=== PATIENT | female | born 1965 | race Hispanic/Latino ===

== ENCOUNTER → 2018-06-14 | Outpatient (CLI) | payer OTHER ==
--- NOTE | 2018-06-28 08:44 | Diagnostic Imaging Report ---
#[id number] - MGSCRBIL #BILATERAL DIGITAL SCREENING MAMMOGRAM WITH CAD: 06/14/2018 CLINICAL: Routine screening. Comparison is made to exams dated: 12/28/2016 mammogram - [facility] and 04/16/2011 mammogram - [facility]. Current study contains 4 films. The tissue of both breasts is heterogeneously dense. This may lower the sensitivity of mammography. Current study was also evaluated with a Computer Aided Detection (CAD) system. There are benign calcifications in both breasts. The branching calcification noted on prior mammogram of 12/28/2016 is not present on the current study. These therefore must have been artefactual. No significant masses, calcifications, or other findings are seen in either breast. There has been no significant interval change. IMPRESSION: BENIGN There is no mammographic evidence of malignancy. A 1 year screening mammogram is recommended. The patient will be notified by letter of the results. Isacc Rodríguez Jr., D.O. cw/:06/27/2018 14:50:04 Air Support Control Officer: Jes VILLARREAL(R)(M), [facility] letter sent: Compared to Prior B9 Mammogram BI-RADS: 2 Benign
== END ==
LOC: MAMMO 10:56
PROVIDERS: ATTEND Internal Medicine
DX: Z12.31 Encounter for screening mammogram for malignant neoplasm of breast (principal)
CPT/HCPCS: 77067

== ENCOUNTER → 2018-11-13 | Outpatient (CLI) | payer OTHER ==
--- NOTE | 2018-11-13 15:58 | Diagnostic Imaging Report ---
EXAMINATION: CHEST 2 VIEWS INDICATION: Cough, bronchitis. COMPARISON: None FINDINGS: TUBES and LINES: None. LUNGS: Lungs are well inflated. No evidence of pneumonia or pulmonary edema. A 7 mm nodular opacity projects over the right lower lung. PLEURA: No pleural effusion or pneumothorax. HEART AND MEDIASTINUM: The cardiomediastinal silhouette is unremarkable. There are atherosclerotic calcifications within the aorta. BONES AND SOFT TISSUES: No acute osseous abnormality. UPPER ABDOMEN: No free air under the diaphragm. IMPRESSION: No acute radiographic abnormality. A 7 mm nodular opacity projects over the right lower lung. While this could represent a calcified granuloma, a noncalcified solid nodule is possible. Suggest chest CT for further evaluation. Signed by: Dr. Vanessa Coreas MD on 11/13/2018 3:54 PM
== END ==
LOC: RAD 15:06
PROVIDERS: ATTEND Internal Medicine
DX: R05 Cough (principal); J40 Bronchitis, not specified as acute or chronic
CPT/HCPCS: 71046

== ENCOUNTER 2020-04-28 17:03 | Emergency (ER) | payer OTHER ==
[~2020-04-28] VITALS: Ht 154.9 cm; Wt 68.0 kg
--- NOTE | 2020-04-28 17:25 | Emergency Department Note ---
History of Present Illnes History of Present Illness Chief Complaint: General Medicine Complaints History of Present Illness This is a 54 year old female brought by family member for 2 week h/o of dizziness, blurriness of the vision and diffuse myalgias. patient without cough CP or SOB. Nonspecific in her symptoms. MRI of the brain earlier in the year for occipital pain . History limited by: language barrier Onset (how long ago): week(s) (ALMA ROSA INMAN DO) Past Medical/Family History Physician Review I have reviewed the patient's past medical and family history. Any updates have been documented here. (ALMA ROSA INMAN DO) Review of Systems Review of Systems Constitutional: Reports weakness EENTM: Reports no symptoms Cardiovascular: Reports no symptoms Respiratory: Reports no symptoms Gastrointestinal: Reports no symptoms Genitourinary: Reports no symptoms Musculoskeletal: Reports muscle pain, Reports muscle stiffness, Reports neck pain Integumentary: Reports no symptoms Neurological: Reports no symptoms Psychological: Reports no symptoms Endocrine: Reports no symptoms Hematological/Lymphatic: Reports no symptoms (ALMA ROSA INMAN DO) Physical Exam Related Data Allergies: Coded Allergies: No Known Allergies (Verified , 03/19/10) Physical Exam CONSTITUTIONAL Constitutional: Present ill appearing; Absent distressed HENT HENT: Present normocephalic, Present atraumatic, Present oropharynx clear/moist, Present nose normal HENT L/R: Present left ext ear normal, Present right ext ear normal EYES Eyes: Reports PERRL, Reports conjunctivae normal NECK Neck: Present ROM normal PULMONARY Pulmonary: Present effort normal, Present breath sounds normal CARDIOVASCULAR Cardiovascular: Present regular rhythm, Present heart sounds normal, Present capillary refill normal, Present normal rate GASTROINTESTINAL Abdominal: Present soft, Present nontender, Present bowel sounds normal GENITOURINARY Genitourinary: Present exam deferred SKIN Skin: Present warm, Present dry MUSCULOSKELETAL Musculoskeletal: Present ROM normal NEUROLOGICAL Neurological: Present alert, Present oriented x 3, Present no gross motor or sensory deficits PSYCHOLOGICAL Psychological: Present mood/affect normal, Present judgement normal (ALMA ROSA INMAN DO) Results Laboratory Laboratory Laboratory Tests Test 04/28/20 18:45 04/28/20 18:19 Urine Color Yellow (YELLOW) Urine Clarity Sl cloudy (CLEAR) Urine pH 6 (5 - 7) Urine Specific [place] 1.020 (1.010-1.025) Urine Protein Negative (NEGATIVE) Urine Glucose (UA) Negative (NEGATIVE) Urine Ketones Negative (NEGATIVE) Urine Blood Trace (NEGATIVE) Urine Nitrite Negative (NEGATIVE) Urine Bilirubin Negative (NEGATIVE) Urine Urobilinogen 0.2 mg/dL (0.2 - 1) Urine Leukocyte Esterase Negative (NEGATIVE) Urine RBC 0-5 /HPF (0-5) Urine WBC None /HPF (0-5) Urine Epithelial Cells Few /LPF (NONE) Urine Bacteria Rare /HPF (NONE) White Blood Count 7.46 x10e3/uL (4.8-10.8) Red Blood Count 4.71 x10e6/uL (3.6-5.1) Hemoglobin 13.7 g/dL (12.0-16.0) Hematocrit 40.0 % (34.2-44.1) Mean Corpuscular Volume 84.9 fL (81-99) Mean Corpuscular Hemoglobin 29.1 pg (28-32) Mean Corpuscular Hemoglobin Concent 34.3 g/dL (31-35) Red Cell Distribution Width 12.3 % (11.7-14.4) Platelet Count 244 x10e3/uL (140-360) Neutrophils (%) (Auto) 48.9 % (38.7-80.0) Lymphocytes (%) (Auto) 38.7 % (18.0-39.1) Monocytes (%) (Auto) 6.8 % (4.4-11.3) Eosinophils (%) (Auto) 4.3 % (0.0-6.0) Basophils (%) (Auto) 0.5 % (0.0-1.0) Neutrophils # (Auto) 3.6 (2.1-6.9) Lymphocytes # (Auto) 2.9 (1.0-3.2) Monocytes # (Auto) 0.5 (0.2-0.8) Eosinophils # (Auto) 0.3 (0.0-0.4) Basophils # (Auto) 0.0 (0.0-0.1) Absolute Immature Granulocyte (auto 0.06 x10e3/uL (0-0.1) Sodium Level 142 mmol/L (136-145) Potassium Level 3.2 mmol/L (3.5-5.1) Chloride Level 103 mmol/L (98-107) Carbon Dioxide Level 28 mmol/L (22-29) Anion Gap 14.2 mmol/L (8-16) Blood Urea Nitrogen 10 mg/dL (7-26) Creatinine 0.79 mg/dL (0.57-1.11) Estimat Glomerular Filtration Rate > 60 ML/MIN (60-) BUN/Creatinine Ratio 13 (6-25) Glucose Level 92 mg/dL (74-118) Calcium Level 9.0 mg/dL (8.4-10.2) Total Bilirubin 0.5 mg/dL (0.2-1.2) Aspartate Amino Transf (AST/SGOT) 26 IU/L (5-34) Alanine Aminotransferase (ALT/SGPT) 43 IU/L (0-55) Alkaline Phosphatase 76 IU/L (40-150) Creatine Kinase 150 IU/L (29-168) Creatine Kinase MB 1.30 ng/mL (0-5.0) Troponin I 0.008 ng/mL (0-0.300) B-Type Natriuretic Peptide < 10.0 pg/mL (0-100) Total Protein 7.7 g/dL (6.5-8.1) Albumin 4.8 g/dL (3.5-5.0) Globulin 2.9 g/dL (2.3-3.5) Albumin/Globulin Ratio 1.7 (0.8-2.0) Lab results reviewed: Yes (WESTLEY LIVINGSTON MD) Imaging Imaging results reviewed: Yes Impressions Procedure: [id number] DX/CHEST SINGLE (PORTABLE) Exam Date: 04/28/20 Exam Time: 1803 REPORT STATUS: Signed Examination: Single AP view of the chest. COMPARISON: Chest 2 views 11/13/2018 INDICATION: Disease spells, pain in posterior head for 2 weeks IMPRESSION: 1. Lines and Tubes: None 2. Lungs are well-inflated. Stable 7 mm nodular density in the right mid to lower lung, which may represent a calcified granuloma.. The lungs are otherwise clear. Recommend follow-up chest PA and lateral in 6-7 months to complete 2 year follow-up. 3. Cardiomediastinal silhouette is normal. Pulmonary vasculature is normal. 4. No acute bony abnormalities. Signed by: Dr. Bob Munroe M.D. on 04/28/2020 6:44 PM Dictated By: BOB MUNROE MD [id number] Transcribed By: DANNIELLE on 04/28/201843 COPY TO: ALMA ROSA INMAN DO~ Procedure: [id number] CT/CT BRAIN WO Exam Date: 04/28/20 Exam Time: 1802 REPORT STATUS: Signed ADDENDUM #1 Impression should include nonspecific enlarged empty sella. Signed by: Dr. Jean-Paul Frausto M.D. on 04/28/2020 6:[address] BRAIN WO HISTORY: Dizziness COMPARISON: None. TECHNIQUE: Noncontrast axial scans were obtained from skull base to the vertex. Coronal and sagittal reconstructions obtained from the axial data. One or more of the following dose reduction techniques were used: Automated exposure control, adjustment of the mA and/or kV according to patient size, and/or utilization of iterative reconstruction technique. DISCUSSION: Scalp/Skull: Unremarkable. Brain sulci: Appropriate for patient's age. Ventricles: Normal in size and configuration. No hydrocephalus. Extra-axial spaces: No masses or fluid collections. Carotid siphon calcifications are present Parenchyma: No abnormal densities. No mass, hemorrhage, or large vascular territory acute infarct. Dural sinuses: No abnormal densities. Sellar/Suprasellar region: Nonspecific enlarged empty sella. Skull base: Intact. Incidental findings: Partially imaged mild chronic deformity of the right orbital floor is likely from remote fracture. IMPRESSION: No acute intracranial abnormalities. Signed by: Dr. Jean-Paul Frausto M.D. on 04/28/2020 6:25 PM Dictated By: JEAN-PAUL FRAUSTO MD 30 Transcribed By: DANNIELLE on 04/28/201824 COPY TO: ALMA ROSA INMAN DO~ (WESTLEY LIVINGSTON MD) Procedures 12 Lead ECG Interpretation ECG Interpretation : ECG: ECG 1 Cable Supervisor: Interpreted by ED physician Date: Apr 28, 2020 Time: 18:24 Prior ECG tracings: reviewed Rhythm: sinus rhythm Rate: normal BPM: 71 QRS axis: normal ST segments normal: Yes T waves normal: Yes Clinical Impression: non-specific ECG (ALMA ROSA INMAN DO) Assessment & Plan Medical Decision Making MDM PT DISCHARGED TO FOLLOW UP WITH HER NEUROLOGIST (WESTLEY LIVINGSTON MD) Assessment & Plan Final Impression: (1) Headache (2) Blurred vision (3) Body aches (WESTLEY LIVINGSTON MD) Depart Disposition: HOME, SELF-CARE ALMA ROSA INMAN DO Apr 28, 2020 17:25 WESTLEY LIVINGSTON MD Apr 28, 2020 19:46
[2020-04-28] MEDS ORDERED: SODIUM CHLORIDE 0.9% 1000ML 1,000 ML IV STA (17:26)
--- OUTSIDE RECORDS SUMMARY | 2020-04-28 18:01 | XMS REPORT | Continuity of Care Document ---
Author Author [facility] t Organization [facility] Address [address] [place] [address] Phone Unavailable Care Team Providers Care Brand Marketing Coordinator Name Role Phone Status, Fax Attphys Unavailable Vero Boothe Attphys Unavailable Deborah, Nuria Attphys Coleen Rosa Attphys Unavailable Aria Albarran Attphys Unavailable Lucio, Aishwarya Attphys Unavailable Carmella Kaba Attphys ZEESHAN HOLBROOK Attphys Unavailable Deborah, Nuria Unavailable Problems Condition Name Condition Details Condition Category Status Onset Date Resolution Date Last Treatment Date Treating Clinician Comments Source Headache Condition Active 2019-12-17 00:00:00 6 11:16:03 Deborah, [employer] [facility] HYPERTENSION Condition Active 2019-12-17 00:00:00 12-18 11:16:03 Deborah, [employer] [facility] Abdominal pain, lower Condition Active 2019-12-17 00:00:0 0 2019-12-19 11:16:03 Deborah, Nuria [facility] Allergies, Adverse Reactions, Alerts This patient has no known allergies or adverse reactions. Social History Social Habit Start Date Stop Date Quantity Comments Source drug use, illicit 2019-12-17 12:24:13 2019-12-17 12:24:13 Never [facility] alcohol use 2019-12-17 12:24:13 2019-12-17 12:24:13 Never [facility] patient considered to be homeless 2019-12-17 12:24:13 2019-12-17 12:2 4:13 No [facility] passive cigarette smoke exposure 2019-12-17 12:24:13 2019-12-17 12:24 :13 No [facility] if the patient is using/has used a vapin g item, Current, Former, Never Used, Not asked 2019-12-17 12:24:13 2019-12-17 12:24:13 No [facility] Smoking Status Start Date Stop Date Source Never smoked tobacco (finding) [facility] Medications Ordered Medication Name Filled Medication Name Start Date Stop Da te Current Medication? Ordering Clinician Indication Dosage Frequency Signature (SIG) Comments Components Source (AMLODIPINE BESYLATE) 10 MG TABS 2019-09-17 00:00:00 Yes Nuria Cabrera TAKE 1 TABLET BY MOUTH ONCE DAILY #30, 30 days supply, Prescribed by ZEESHAN HOLBROOK, Filled 11/16/2019 [facility] Vital Signs Vital Name Observation Time Observation Value Comments Source blood pressure, diastolic 2019-12-17 12:24:13 84 mm[Hg] [facility] blood pressure, systolic 2019-12-17 12:24:13 131 mm[Hg] [facility] weight E&M 2019-12-17 12:24:13 148 [lb_av] [facility] weight in kilograms E&M 2019-12-17 12:24:13 67.27 kg [facility] height in centimeters E&M 2019-12-17 12:24:13 154.94 cm [facility] Procedures This patient has no known procedures. Encounters Start Date/Time End Date/Time Encounter Type Admission Type [facility] Care Department Encounter ID Source 2019-12-19 00:00:00 2019-12-19 00:00:00 Office Visit Status, Fax [facility] Encounter/[id number] [facility] 2019-12-19 00:00:00 2019-12-19 00:00:00 Office Visit Status, Fax [facility] Encounter/[id number] [facility] 2019-12-19 00:00:00 2019-12-19 00:00:00 Office Visit Status, Fax [facility] Encounter/[id number] [facility] 2019-12-17 00:00:00 2019-12-17 00:00:00 Office Visit Vero Boothe [facility] Encounter/[id number] [facility] 2019-12-17 00:00:00 2019-12-17 00:00:00 Office Visit Nuria Jiang Brenda Lopez, Marleni McIntyre, Shakira [facility] Encounter/[id number] [facility] 2019-12-17 00:00:00 2019-12-17 00:00:00 Office Visit Aishwarya Chavez [facility] Encounter/[id number] [facility] 2019-12-17 00:00:00 2019-12-17 00:00:00 Office Visit Aishwarya Salazar Hugo A [facility] Encounter/[id number] [facility] Results Test Description Test Time Test Comments Results Result Comments Source CHEST 2 VIEWS 2018-11-13 15:50:00 [place] [address] Patient Name: RHIANNON ADLER MR #: [id number] : 1965 Age/Sex: 53/F Req #: [id number] Adm Physician: Ordered by: ZEESHAN HOLBROOK MD Report #: [id number] Location: [facility] Room/Bed: Procedure: [id number] DX/CHEST 2 VIEWS Exam Date: Exam Time: REPORT STATUS: Signed EXAMINATION: CHEST 2 VIEWS INDICATION: Cough, bronchitis. COMPARISON: None FINDINGS: TUBES and LINES: None. LUNGS: Lungs are well inflated. No evidence of pneumonia or pulmonary edema. A 7 mm nodular opacity projects over the right lower lung. PLEURA: No pleural effusion or pneumothorax. HEART AND MEDIASTINUM: The cardiomediastinal silhouette is unremarkable. There are atherosclerotic calcifications within the aorta. BONES AND SOFT TISSUES: No acute osseous abnormality. UPPER ABDOMEN: No free air under the diaphragm. IMPRESSION: No acute radiographic abnormality. A 7 mm nodular opacity pr ojects over the right lower lung. While this could represent a calcified granuloma, a noncalcified solid nodule is possible. Suggest chest CT for further evaluation. Signed by: Dr. Annette Huffman MD on 11/13/2018 3:54 PM Dictated By: ANNETTE HUFFMAN MD [id number] Transcribed By: DANNIELLE on 11/13/18 5307 COPY TO: ZEESHAN HOLBROOK MD MAMMOGRAPHY DIGITAL SCR BILAT 2018-06-14 11:48:00 [place] [address] Patient Name: RHIANNON ADLER MR #: [id number] : 1965 Age/Sex: 52/F Req #: [id number] [facility] Physician: Ordered by: ZEESHAN HOLBROOK MD Report #: [id number] Location: MAMMO Room/Bed: Procedure: [id number] MG/MAMMOGRAPHY DIGITAL SCR BILAT Exam Date: 06/14/18 Exam Time: 1100 REPORT STATUS: Signed #[id number] - MGSCRBIL #BILATERAL DIGITAL SCREENING MAMMOGRAM WITH CAD: 06/14/2018 CLINICAL: Routine screening. Comparison is made to exams dated: 12/28/2016 mammogram - [facility] and 04/16/2011 mammo gram - [facility]. Current study contains 4 films. The tissue of both breasts is heterogeneously dense. This may lower the sensitivity of mammography. Current study was also evaluated with a Computer Aided Detection (CAD) system. There are benign calcifications in both breasts. The branching calcification noted on prior mammogram of 12/28/2016 is not present on the current study. These therefore must have been artefactual. No significant masses, calcifications, or other findings are seen in either breast. There has been no significant interval change. IMPRESSION: BENIGN There is no mammographic evidence of malignancy. A 1 year screening mammogram is recommended. The patient will be notified by letter of the results. Isacc Rodríguez Jr., D.O. cw/:06/27/2018 14:50:04 Diamond Grader: Jes VILLARREAL([place])(M), [facility] letter sent: Compared to Prior B9 Mammogram BI-RADS: 2 Benign Dictated By: ISACC RODRÍGUEZ DO [id number] Transcribed By: MAYDA on 06/27/18 5730 COPY TO: ZEESHAN HOLBROOK MD
--- NOTE | 2020-04-28 18:28 | Diagnostic Imaging Report ---
ADDENDUM #1 Impression should include nonspecific enlarged empty sella. Signed by: Dr. Jean-Paul Frausto M.D. on 04/28/2020 6:[address] BRAIN WO HISTORY: Dizziness COMPARISON: None. TECHNIQUE: Noncontrast axial scans were obtained from skull base to the vertex. Coronal and sagittal reconstructions obtained from the axial data. One or more of the following dose reduction techniques were used: Automated exposure control, adjustment of the mA and/or kV according to patient size, and/or utilization of iterative reconstruction technique. DISCUSSION: Scalp/Skull: Unremarkable. Brain sulci: Appropriate for patient's age. Ventricles: Normal in size and configuration. No hydrocephalus. Extra-axial spaces: No masses or fluid collections. Carotid siphon calcifications are present Parenchyma: No abnormal densities. No mass, hemorrhage, or large vascular territory acute infarct. Dural sinuses: No abnormal densities. Sellar/Suprasellar region: Nonspecific enlarged empty sella. Skull base: Intact. Incidental findings: Partially imaged mild chronic deformity of the right orbital floor is likely from remote fracture. IMPRESSION: No acute intracranial abnormalities. Signed by: Dr. Jean-Paul Frausto M.D. on 04/28/2020 6:25 PM
[2020-04-28 18:30] LABS: BASOPHILS % 0.5 % (0.0-1.0); EOSINOPHILS # (AUTO) 0.3 (0.0-0.4); EOSINOPHILS % 4.3 % (0.0-6.0); HEMOGLOBIN 13.7 g/dL (12.0-16.0); LYMPHOCYTES # (AUTO) 2.9 (1.0-3.2); LYMPHOCYTES % 38.7 % (18.0-39.1); MEAN CORPUSCULAR HEMOGLOBIN 29.1 pg (28-32); MEAN CORPUSCULAR HGB CONC 34.3 g/dL (31-35); MEAN CORPUSCULAR VOLUME 84.9 fL (81-99); MONOCYTES # (AUTO) 0.5 (0.2-0.8); MONOCYTES % 6.8 % (4.4-11.3); NEUTROPHILS # (AUTO) 3.6 (2.1-6.9); NEUTROPHILS % 48.9 % (38.7-80.0); PLATELET COUNT 244 x10e3/uL (140-360); RED BLOOD COUNT 4.71 x10e6/uL (3.6-5.1); RED CELL DISTRIBUTION WIDTH 12.3 % (11.7-14.4)
--- NOTE | 2020-04-28 18:47 | Diagnostic Imaging Report ---
Examination: Single AP view of the chest. COMPARISON: Chest 2 views 11/13/2018 INDICATION: Disease spells, pain in posterior head for 2 weeks IMPRESSION: 1. Lines and Tubes: None 2. Lungs are well-inflated. Stable 7 mm nodular density in the right mid to lower lung, which may represent a calcified granuloma.. The lungs are otherwise clear. Recommend follow-up chest PA and lateral in 6-7 months to complete 2 year follow-up. 3. Cardiomediastinal silhouette is normal. Pulmonary vasculature is normal. 4. No acute bony abnormalities. Signed by: Dr. Alex Munroe M.D. on 04/28/2020 6:44 PM
[2020-04-28 18:48] LABS: ALANINE AMINOTRANSFERASE 43 IU/L (0-55); ALBUMIN 4.8 g/dL (3.5-5.0); ALBUMIN/GLOBULIN RATIO 1.7 (0.8-2.0); ALKALINE PHOSPHATASE 76 IU/L (40-150); ANION GAP 14.2 mmol/L (8-16); BLOOD UREA NITROGEN 10 mg/dL (7-26); BUN/CREATININE RATIO 13 (6-25); CARBON DIOXIDE 28 mmol/L (22-29); CHLORIDE 103 mmol/L (98-107); CREATINE KINASE 150 IU/L (29-168); CREATININE, SERUM 0.79 mg/dL (0.57-1.11); EST GLOMERULAR FILTRATION RATE > 60 ML/MIN (60-); GLUCOSE 92 mg/dL (74-118); POTASSIUM 3.2 mmol/L (3.5-5.1); SODIUM 142 mmol/L (136-145)
[2020-04-28 19:06] LABS: BILIRUBIN,URINE NEGATIVE (NEGATIVE); CLARITY,URINE SL CLOUDY (CLEAR); COLOR,URINE YELLOW (YELLOW); KETONES,URINE NEGATIVE (NEGATIVE); LEUKOCYTE ESTERASE ,URINE NEGATIVE (NEGATIVE); NITRITE,URINE NEGATIVE (NEGATIVE); PROTEIN,URINE DIPSTICK NEGATIVE (NEGATIVE); URINE UROBILINOGEN 0.2 mg/dL (0.2 - 1)
[2020-04-28 19:28] LABS: BACTERIA,URINE RARE /HPF; EPITHELIAL CELLS,URINE FEW /LPF; RBC,URINE 0-5 /HPF (0-5)
[2020-04-28 20:22] VITALS: BP 135/76
== END 2020-04-28 20:24 | disposition home or self-care (01) ==
LOC: ER 17:59
DX: R51 Headache (principal); H53.8 Other visual disturbances; R42 Dizziness and giddiness; M54.2 Cervicalgia; M79.10 Myalgia, unspecified site
CPT/HCPCS: 36415; 70450; 71045; 80053; 81001; 82550; 82553; 83880; 84484; 85025; 93005; 99284

== ENCOUNTER 2020-05-05 22:04 | Emergency (ER) | payer OTHER ==
[~2020-05-05] VITALS: Ht 154.9 cm; Wt 68.0 kg
[2020-05-05] MEDS ORDERED: KETOROLAC TROMETHAMINE 30 MG/ML VIAL IV STA (22:28)
[2020-05-05] MEDS ORDERED: SODIUM CHLORIDE 0.9% 500ML 500 ML IV STA (22:28)
[2020-05-05] MEDS ORDERED: DIPHENHYDRAMINE HCL INJ 50 MG/ML VIAL IV STA (22:28)
[2020-05-05 22:29] LABS: BASOPHILS # (AUTO) 0.1 (0.0-0.1); BASOPHILS % 0.7 % (0.0-1.0); EOSINOPHILS # (AUTO) 0.3 (0.0-0.4); EOSINOPHILS % 3.7 % (0.0-6.0); HEMATOCRIT 41.6 % (34.2-44.1); HEMOGLOBIN 14.2 g/dL (12.0-16.0); LYMPHOCYTES # (AUTO) 3.1 (1.0-3.2); LYMPHOCYTES % 40.9 % (18.0-39.1); MEAN CORPUSCULAR HEMOGLOBIN 28.7 pg (28-32); MEAN CORPUSCULAR HGB CONC 34.1 g/dL (31-35); MONOCYTES # (AUTO) 0.5 (0.2-0.8); MONOCYTES % 6.3 % (4.4-11.3); NEUTROPHILS # (AUTO) 3.6 (2.1-6.9); NEUTROPHILS % 47.7 % (38.7-80.0); PLATELET COUNT 247 x10e3/uL (140-360); RED BLOOD COUNT 4.95 x10e6/uL (3.6-5.1); RED CELL DISTRIBUTION WIDTH 12.2 % (11.7-14.4)
[2020-05-05] MEDS ORDERED: METOCLOPRAMIDE HCL 10 MG/2ML VIAL IV ONE (22:30)
[2020-05-05 22:44] LABS: BILIRUBIN,URINE NEGATIVE (NEGATIVE); CLARITY,URINE SL CLOUDY (CLEAR); COLOR,URINE YELLOW (YELLOW); KETONES,URINE NEGATIVE (NEGATIVE); LEUKOCYTE ESTERASE ,URINE NEGATIVE (NEGATIVE); NITRITE,URINE NEGATIVE (NEGATIVE); PROTEIN,URINE DIPSTICK TRACE (NEGATIVE); URINE UROBILINOGEN 0.2 mg/dL (0.2 - 1)
[2020-05-05] MEDS ORDERED: TETRACAINE HCL 0.5% OPTH SOLN 4 ML BTL OP ONE (22:45)
[2020-05-05 22:48] LABS: ALANINE AMINOTRANSFERASE 44 IU/L (0-55); ALBUMIN 4.9 g/dL (3.5-5.0); ALBUMIN/GLOBULIN RATIO 1.5 (0.8-2.0); ALKALINE PHOSPHATASE 88 IU/L (40-150); ANION GAP 14.1 mmol/L (8-16); BLOOD UREA NITROGEN 11 mg/dL (7-26); BUN/CREATININE RATIO 15 (6-25); CALCIUM 9.3 mg/dL (8.4-10.2); CARBON DIOXIDE 26 mmol/L (22-29); CHLORIDE 105 mmol/L (98-107); CREATININE, SERUM 0.75 mg/dL (0.57-1.11); EST GLOMERULAR FILTRATION RATE > 60 ML/MIN (60-); GLUCOSE 117 mg/dL (74-118); POTASSIUM 3.1 mmol/L (3.5-5.1); SODIUM 142 mmol/L (136-145)
[2020-05-05 22:50] LABS: BACTERIA,URINE FEW /HPF; EPITHELIAL CELLS,URINE MODERATE /LPF; RBC,URINE 0-5 /HPF (0-5); WBC,URINE (MAN) 0-5 /HPF (0-5)
--- NOTE | 2020-05-05 22:59 | Emergency Department Note ---
History of Present Illnes History of Present Illness Chief Complaint: Headache History of Present Illness This is a 54 year old female Chief Complaint Comment 54 Y/O FEMALE PT AAOX3 PRESENTS TO THE ER C/O RUBIO AND BLURRED VISION X7 DAYS; PT REPORTS PRESSURE BEHIND BOH EYES BUT WORSE BEHIND RT EYE; PT'S DAUGHTER STATES SHE HAS SEEN NEUROLOGIST AND HAD X2 MRI'S WITHIN THE PAST [address] LAST TUESDAY AT HIS FACILITY AND TOLD SHE HAS AN INACTIVE LESION BY NEUROLOGIST; DAUGHTER IS WANTING A FULL WORKUP; PT HAS PHOTOPHOBIA. Historian: Patient Arrival Mode: Car Associate Buyer Required: Yes Onset (how long ago): month(s) (6) Location: Bilateral eyes Quality: Sharp Past Medical/Family History Physician Review I have reviewed the patient's past medical and family history. Any updates have been documented here. Past Medical History Recent Fever: No Clinical Suspicion of Infectio: No New/Unexplained Change in Ment: No Past Medical History: Hypertension, Migraines Past Surgical History: None Other Surgery: ANKLE Review of Systems Review of Systems Constitutional: Reports no symptoms EENTM: Reports eye pain, Reports blurred vision Cardiovascular: Reports no symptoms Respiratory: Reports no symptoms Gastrointestinal: Reports no symptoms Genitourinary: Reports no symptoms Musculoskeletal: Reports no symptoms Integumentary: Reports no symptoms Neurological: Reports as per HPI, Reports headache Psychological: Reports no symptoms Endocrine: Reports no symptoms Hematological/Lymphatic: Reports no symptoms Physical Exam Related Data Allergies: Coded Allergies: No Known Allergies (Verified , 03/19/10) Triage Vital Signs Vital Signs Date Time Temp Pulse Resp B/P (MAP) Pulse Ox O2 Delivery O2 Flow Rate FiO2 05/05/20 22:10 98.4 81 18 158/95 100 Room Air Vital signs reviewed: Yes Physical Exam CONSTITUTIONAL Constitutional: Present well-developed, Present well-nourished HENT HENT: Present normocephalic, Present atraumatic, Present oropharynx clear/moist, Present nose normal HENT L/R: Present left ext ear normal, Present right ext ear normal EYES Eyes: Reports PERRL, Reports conjunctivae normal, Reports EOM normal (Pain with EOM movement. Vision 20/10 in L eye and 20/70 R eye with out glasses), Reports other (Fluorescin stainging shows no uptake. IOP 20 in both eyes. ); Denies lids normal, Denies left eye discharge, Denies right eye discharge, Denies scleral icterus NECK Neck: Present ROM normal PULMONARY Pulmonary: Present effort normal, Present breath sounds normal CARDIOVASCULAR Cardiovascular: Present regular rhythm, Present heart sounds normal, Present capillary refill normal, Present normal rate GASTROINTESTINAL Abdominal: Present soft, Present nontender, Present bowel sounds normal GENITOURINARY Genitourinary: Present exam deferred SKIN Skin: Present warm, Present dry MUSCULOSKELETAL Musculoskeletal: Present ROM normal NEUROLOGICAL Neurological: Present alert, Present oriented x 3, Present no gross motor or sensory deficits PSYCHOLOGICAL Psychological: Present mood/affect normal, Present judgement normal Results Laboratory Result Diagram: 05/05/20 2222 Laboratory Laboratory Tests Test 05/05/20 22:22 White Blood Count 7.62 x10e3/uL (4.8-10.8) Red Blood Count 4.95 x10e6/uL (3.6-5.1) Hemoglobin 14.2 g/dL (12.0-16.0) Hematocrit 41.6 % (34.2-44.1) Mean Corpuscular Volume 84.0 fL (81-99) Mean Corpuscular Hemoglobin 28.7 pg (28-32) Mean Corpuscular Hemoglobin Concent 34.1 g/dL (31-35) Red Cell Distribution Width 12.2 % (11.7-14.4) Platelet Count 247 x10e3/uL (140-360) Neutrophils (%) (Auto) 47.7 % (38.7-80.0) Lymphocytes (%) (Auto) 40.9 % (18.0-39.1) Monocytes (%) (Auto) 6.3 % (4.4-11.3) Eosinophils (%) (Auto) 3.7 % (0.0-6.0) Basophils (%) (Auto) 0.7 % (0.0-1.0) Neutrophils # (Auto) 3.6 (2.1-6.9) Lymphocytes # (Auto) 3.1 (1.0-3.2) Monocytes # (Auto) 0.5 (0.2-0.8) Eosinophils # (Auto) 0.3 (0.0-0.4) Basophils # (Auto) 0.1 (0.0-0.1) Absolute Immature Granulocyte (auto 0.05 x10e3/uL (0-0.1) Procedures Procedures Procedure: Ultrasound eyes bilaterally shows no retinal detachment, optic nerve diameter bilaterally is 3mm Assessment & Plan Medical Decision Making MDM 54-year-old female with a past medical history hypertension and migraines presents to emergency department for reevaluation of headache, eye pain, blurry vision. This has been ongoing for many months and is waxing and waning in intensity. She has been seen multiple times and has had an extensive workup including MRI with and without contrast, CT scan of the head, extensive labor atory workup, EEG, carotid Dopplers which revealed no emergent process or obvious cause of her symptoms. Initial differential includes migraine versus meningitis versus versus giant cell arteritis versus optic neuritis among others. After extensive examination of her prior medical records and my exa mination it is unlikely that there is an emergent process at this time. Symptoms could be secondary to a complex migraine as well. CT orbits shows no significant abnormalities, eye exam is unremarkable, intraocular pressures are normal, ultrasound of the eyes are also normal. No focal neurologic deficits, cranial nerves II through XII are intact,no fever, meningeal signs. Discussed results with patient and daughter and they will follow-up with their ophthalmology appointment as well as neurology. She was given a headache cocktail in the emergency department with moderate resolution of her symptoms. Discussed with her to follow up with optho and neurology outpatient. Doubt emergent process and patient is appropriate for discharge. Note patient had anxiety, shaking in CT scan after contrast/scan complete. No signs of actual allergic reaction. Favor claustrophobia/ contrast reaction (not allergic). Reassessment Reassessment time: 23:13 Reassessment Pain improved Assessment & Plan Final Impression: (1) Headache Depart Disposition: HOME, SELF-CARE Last Vital Signs Date Time Temp Pulse Resp B/P (MAP) Pulse Ox O2 Delivery O2 Flow Rate FiO2 05/05/20 22:10 98.4 81 18 158/95 100 Room Air Medications in the ED Sodium Chloride 500 ml @ 0 mls/hr Q0M STAT IV ; Start 05/05/20 at 22:28; Stop 05/05/20 at 22:29 Metoclopramide HCl 10 mg ONCE ONCE IV ; Start 05/05/20 at 22:30; Stop 05/05/20 at 22:31; Status UNV Ketorolac Tromethamine 15 mg ONCE STAT IV ; Start 05/05/20 at 22:28; Stop 05/05/20 at 22:29; Status UNV Diphenhydramine HCl 12.5 mg ONCE STAT IV ; Start 05/05/20 at 22:28; Stop 05/05/20 at 22:29; Status UNV DARWIN SANCHEZ MD May 05, 2020 22:59
[2020-05-05] MEDS ORDERED: FLUORESCEIN SOD(OPTH) 1 MG STRP OP ONE (23:00)
[2020-05-05] MEDS ORDERED: IOPAMIDOL 370 MG/ML 200 ML INFUS..BTL INJ ONE (23:06)
[2020-05-05] MEDS ORDERED: SODIUM CHLORIDE 0.9% 50ML 50 ML ONE (23:06)
[2020-05-05] MEDS ORDERED: FLUORESCEIN SOD(OPTH) 1 MG STRP ONE (23:08)
--- NOTE | 2020-05-06 00:16 | Diagnostic Imaging Report ---
History:Headache, blurred vision for 7 days. Pain and pressure behind both eyes. Comparison studies:None Technique: Axial images were obtained through the orbits after contrast administration. Coronal and sagittal images reconstructed from the axial data. Dose modulation, iterative reconstruction, and/or weight based adjustment of the mA/kV was utilized to reduce the radiation dose to as low as reasonably achievable. Intravenous contrast: 100 mL of Isovue-370. Findings: Globes: Intact. The anterior and posterior chambers are clear. The lenses are well visualized. Optic nerves: Normal in size and symmetric. Extraocular muscles: Normal in size and symmetric. Intraconal abnormalities: None. Superior ophthalmic veins: Normal in size and symmetric. Cavernous sinuses: Grossly symmetric. Pituitary stalk: At midline. Sella: CSF filled, enlarged empty sella. Bones: Chronic fracture deformity of right orbital floor. Sinuses: Mild mucosal thickening in bilateral maxillary sinuses. Soft tissues: No abnormalities. IMPRESSION: No acute abnormality. Incidental enlarged, empty sella. Signed by: Dr. Sofia Jackson M.D. on 05/06/2020 12:13 AM
[2020-05-06 01:05] VITALS: BP 128/86
== END 2020-05-06 00:33 | disposition home or self-care (01) ==
LOC: ER 22:35
DX: R51 Headache (principal); H53.8 Other visual disturbances; I10 Essential (primary) hypertension
CPT/HCPCS: 36415; 70481; 80053; 81001; 85025; 85651; 86140; 96374; 96375; 99284; J1200; J1885; J2765; J7040; Q9967

== ENCOUNTER 2025-02-04 20:34 | Emergency (ER) | payer OTHER ==
[~2025-02-04] VITALS: Ht 154.9 cm; Wt 65.8 kg
[2025-02-04 20:58] LABS: BASOPHILS % 0.3 % (0.0-1.0); EOSINOPHILS # (AUTO) 0.2 (0.0-0.4); EOSINOPHILS % 2.5 % (0.0-6.0); HEMATOCRIT 40.1 % (34.2-44.1); HEMOGLOBIN 14.2 g/dL (12.0-16.0); LYMPHOCYTES # (AUTO) 3.2 (1.0-3.2); MEAN CORPUSCULAR HEMOGLOBIN 29.9 pg (28-32); MEAN CORPUSCULAR HGB CONC 35.4 g/dL (31-35); MEAN CORPUSCULAR VOLUME 84.4 fL (81-99); MONOCYTES # (AUTO) 0.5 (0.2-0.8); MONOCYTES % 5.6 % (4.4-11.3); NEUTROPHILS # (AUTO) 5.6 (2.1-6.9); PLATELET COUNT 264 x10e3/uL (140-360); RED BLOOD COUNT 4.75 x10e6/uL (3.6-5.1); RED CELL DISTRIBUTION WIDTH 12.1 % (11.7-14.4); WHITE BLOOD COUNT 9.67 x10e3/uL (4.8-10.8)
[2025-02-04 21:21] LABS: ALBUMIN 4.4 g/dL (3.5-5.0); ALBUMIN/GLOBULIN RATIO 1.2 (0.8-2.0); ANION GAP 19.4 mmol/L (8-16); BILIRUBIN,TOTAL 0.4 mg/dL (0.2-1.2); CALCIUM 9.2 mg/dL (8.4-10.2); CREATININE, SERUM 0.83 mg/dL (0.57-1.11); POTASSIUM 3.4 mmol/L (3.5-5.1); TOTAL PROTEIN 8.2 g/dL (6.5-8.1)
[2025-02-04 21:26] LABS: TROPONIN I 0.014 ng/mL (0-0.300)
[2025-02-04] MEDS: ASPIRIN 81 MG CHEW TAB PO ONE (21:49)
[2025-02-04] MEDS ORDERED: SODIUM CHLORIDE 0.9% 100 ML ONE (22:28)
[2025-02-04] MEDS ORDERED: IOPAMIDOL 370 MG/ML 100 ML INFUS..BTL INJ ONE (22:28)
[2025-02-04 23:30] VITALS: TEMP 97.7
[2025-02-05] VITALS: PULSE 69; RESP 21
[2025-02-05] MEDS ORDERED: KETOROLAC TROME10 MG PO (00:20)
[2025-02-05 00:54] VITALS: BP 149/91; PULSE 72; RESP 20; TEMP 97.8; O2SAT 100
== END 2025-02-05 00:30 | disposition home or self-care (01) ==
LOC: ER 20:39
DX: R07.89 Other chest pain (principal); I10 Essential (primary) hypertension; R94.31 Abnormal electrocardiogram [ECG] [EKG]; I69.354 Hemiplegia and hemiparesis following cerebral infarction affecting left non-dominant side
CPT/HCPCS: 36415; 70450; 70496; 70498; 71045; 80053; 82550; 82948; 83690; 83880; 84484; 85025; 93005; 99284; J7050; Q9967